=== PATIENT | male | born 1980 | race Caucasian/White ===

== ENCOUNTER 2016-11-20 11:56 | Emergency (ER) | payer MEDICARE ==
[~2016-11-20] VITALS: Ht 185.4 cm; Wt 98.5 kg
[~2016-11-20 11:56] MED LIST: ACET500C5 PO; CETI10CA PO; NPH10OT BOTH EARS
[2016-11-20 11:57] VITALS: Ht 185.4 cm; Wt 98.5 kg
[2016-11-20] MEDS ORDERED: CLIN-73 PO (12:19)
[2016-11-20] MEDS ORDERED: DIVA250T60 PO (12:19)
[2016-11-20] MEDS ORDERED: KEN1O TOP (12:19)
[2016-11-20] MEDS ORDERED: OLAN5TAB5 PO (12:19)
[2016-11-20 13:15] VITALS: BP 158/89; PULSE 75; RESP 18; TEMP 98.4
--- NOTE | 2016-11-20 13:49 | ERD ---
ER Documentation Chief Complaint Date/Time DATE: 11/20/16 TIME: 13:47 Chief Complaint needs refill on psych meds , denies si/hi , ear pain , jaw pain HPI Patient is a 36-year-old male with schizophrenia who presents requesting refills of his medications. He said that he needed Zyprexa, Depakote, clindamycin, triamcinolone cream, and [place]. He has no other complaints. He said that he needs psychiatric referrals as well. Upon review of old medical records this is the patient's sixth visit to the ER since 2014. He does not currently have a primary doctor. ROS All systems reviewed and are negative except as per history of present illness. Medications Home Meds Active Scripts Triamcinolone Acetonide* (Kenalog*) 0.1%-15GM Oint, 1 APPLIC TOP TID, #1 EA Prov:RAIN DARDEN MD 11/20/16 Clindamycin Hcl* (Clindamycin Hcl*) 300 Mg Capsule, 300 MG PO Q8, #90 CAP Prov:RAIN DARDEN MD 11/20/16 Divalproex Sodium* (Depakote*) 250 Mg Tablet.dr, 250 MG PO BID, #60 TAB Prov:RAIN DARDEN MD 11/20/16 Olanzapine* (Zyprexa*) 5 Mg Tablet, 5 MG PO BID, #60 TAB Prov:RAIN DARDEN MD 11/20/16 Cetirizine Hcl* (Zyrtec*) 10 Mg Capsule, 10 MG PO DAILY, #30 TAB.CHEW Prov:DON LEON NP 01/20/16 Neomycin/Polymyxin/Hydrocort* (Cortisporin* Otic) 10 Ml Susp, 4 DROP BOTH EARS QID for 7 Days, EA Prov:DON LEON NP 01/20/16 Acetaminophen* (Tylophen*) 500 Mg Capsule, 1 CAP PO Q6H Y for PAIN AND OR ELEVATED TEMP, #20 CAP Prov:DON LEON NP 01/20/16 Allergies Allergies: Coded Allergies: cephalexin (Verified Allergy, Intermediate, 03/30/15) ibuprofen (Verified Allergy, Intermediate, 03/30/15) PMhx/Soc History of Surgery: Yes (L. EYE ) Anesthesia Reaction: No Hx Neurological Disorder: No Hx Respiratory Disorders: No Hx Cardiac Disorders: No Hx Psychiatric Problems: Yes (schitzophrenia) Hx Miscellaneous Medical Probl: Yes (chronic foot infection) Hx Alcohol Use: Yes (states he no longer drinks) Hx Substance Use: No Hx Tobacco Use: Yes Smoking Status: Former smoker FmHx Family History: diabetes Physical Exam Vitals Vital Signs Date Time Temp Pulse Resp B/P Pulse Ox O2 Delivery O2 Flow Rate FiO2 11/20/16 13:15 98.4 75 18 158/89 98 Room Air 11/20/16 11:57 97.3 82 18 167/118 100 Physical Exam Const: No acute distress Head: Atraumatic Eyes: Normal Conjunctiva ENT: Normal External Ears, Nose and Mouth. Neck: Full range of motion..~ No meningismus. Resp: Clear to auscultation bilaterally Cardio: Regular rate and rhythm, no murmurs Abd: Soft, non tender, non distended. Normal bowel sounds Skin: No petechiae or rashes Back: No midline or flank tenderness Ext: No cyanosis, or edema Neur: Awake and alert Psych: Schizophrenia but no suicidal or homicidal ideation, the patient has organized thought Procedures/MDM Smoking Cessation Therapy: Pt. was lectured for greater than 3 minutes on the health risks of continued smoking and the benefits of cessation. Patient is a 36-year-old male presents for schizophrenia and medication refills. The patient will be given a prescription for Zyprexa, Depakote, clindamycin, and triamcinolone cream. I will not give him a prescription for [place] as this is a controlled substance and he will need to get this by her primary doctor. I have given him referrals for the local clinics as well as for local psychiatric resources. He can return for any worsening symptoms. I do not believe he requires further workup or 5150 hold at this time. Departure Diagnosis: Primary Impression: Schizophrenia Schizophrenia type: unspecified Qualified Code: F20.9 - Schizophrenia, unspecified type Condition: Fair Patient Instructions: Schizophrenia, General Referrals: COMMUNITY CLINICS YOU HAVE RECEIVED A MEDICAL SCREENING EXAM AND THE RESULTS INDICATE THAT YOU DO NOT HAVE A CONDITION THAT REQUIRES URGENT TREATMENT IN THE EMERGENCY DEPARTMENT. FURTHER EVALUATION AND TREATMENT OF YOUR CONDITION CAN WAIT UNTIL YOU ARE SEEN IN YOUR DOCTORS OFFICE WITHIN THE NEXT 1-2 DAYS. IT IS YOUR RESPONSIBILITY TO MAKE AN APPOINTMENT FOR FOLOW-UP CARE. IF YOU HAVE A PRIMARY DOCTOR --you should call your primary doctor and schedule an appointment IF YOU DO NOT HAVE A PRIMARY DOCTOR YOU CAN CALL OUR PHYSICIAN REFERRAL HOTLINE AT IF YOU CAN NOT AFFORD TO SEE A PHYSICIAN YOU CAN CHOSE FROM THE FOLLOWING [facility] [address] [facility] [address] [facility] [facility] [address] [facility] [address] [facility] [address] [facility]. [facility] [address] Additional Instructions: Call your primary care doctor TOMORROW for an appointment during the next 1 WEEK.Tell the field secretary that you were referred from this facility.See the doctor sooner or return here if your condition worsens before your appointment time. RAIN DARDEN MD Nov 20, 2016 13:49
== END 2016-11-20 13:15 | disposition home or self-care (01) ==
LOC: E/R 11:56
DX: F20.9 Schizophrenia, unspecified (principal); Z87.891 Personal history of nicotine dependence
CPT/HCPCS: 99281

== ENCOUNTER 2016-11-27 08:52 | Emergency (ER) | payer MEDICARE ==
[~2016-11-27] VITALS: Wt 91.0 kg
[~2016-11-27 08:52] MED LIST changes: +CLIN-73 PO; +DIVA250T60 PO; +KEN1O TOP; +OLAN5TAB5 PO
[2016-11-27 11:28] LABS: ADD SCAN DIFF NO
[2016-11-27 11:31] LABS: BASOPHILS % 0.4 % (0.0-2.0); EOSINOPHILS # 0.3 10^3/ul (0.0-0.5); EOSINOPHILS % 3.9 % (0.0-7.0); HEMATOCRIT 36.5 % (42.0-52.0); HEMOGLOBIN 12.2 g/dl (14.0-18.0); LYMPHOCYTES # 2.3 10^3/ul (0.8-2.9); LYMPHOCYTES % 30.8 % (15.0-51.0); MEAN CORPUSCULAR HGB CONC 33.4 g/dl (32.0-37.0); MEAN CORPUSCULAR VOLUME 92.9 fl (82.0-101.0); MEAN PLATELET VOLUME 9.1 fl (7.4-10.4); MONOCYTE # 0.9 10^3/ul (0.3-0.9); MONOCYTES % 11.3 % (0.0-11.0); NEUTROPHILS % 53.1 % (39.0-77.0); PLATELET COUNT 237 10^3/UL (140-415); RED BLOOD COUNT 3.93 10^6/ul (4.70-6.10); RED CELL DISTRIBUTION WIDTH 13.2 % (11.5-14.5); WHITE BLOOD COUNT 7.5 10^3/ul (4.8-10.8)
[2016-11-27 11:32] LABS: ADD UMIC NO; UR BILIRUBIN (Dip) NEGATIVE (NEGATIVE); UR BLOOD (Dip) NEGATIVE (NEGATIVE); UR CLARITY CLEAR (CLEAR); UR COLOR LT. YELLOW (YELLOW); UR GLUCOSE (Dip) NEGATIVE (NEGATIVE); UR KETONES (Dip) NEGATIVE (NEGATIVE); UR LEUKOCYTE ESTERASE (Dip) NEGATIVE (NEGATIVE); UR NITRITE (Dip) NEGATIVE (NEGATIVE); UR TOTAL PROTEIN (Dip) NEGATIVE (NEGATIVE); UR UROBILINOGEN (Dip) 0.2 E.U./dL (0.1-1.0)
[2016-11-27 12:07] LABS: BARBITURATES Negative (NEGATIVE); BENZODIAZEPINES Negative (NEGATIVE); CANNABINOIDS Negative (NEGATIVE); COCAINE Negative (NEGATIVE); OPIATES Negative (NEGATIVE)
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
[2016-11-27 12:17] LABS: ALANINE AMINOTRANSFERASE 31 IU/L (13-69); ALBUMIN 4.7 g/dl (3.3-4.9); ALBUMIN/GLOBULIN RATIO 2.47; ALKALINE PHOSPHATASE 65 IU/L (42-121); ANION GAP 12 (8-16); ASPARTATE AMINO TRANSFERASE 17 IU/L (15-46); BILIRUBIN,INDIRECT 0.1 mg/dl (0-1.1); BILIRUBIN,TOTAL 0.1 mg/dl (0.2-1.3); BLOOD UREA NITROGEN 14 mg/dl (7-20); CALCIUM 8.8 mg/dl (8.4-10.2); CARBON DIOXIDE 27 mmol/L (21-31); CHLORIDE 104 mmol/L (97-110); CREATININE 0.94 mg/dl (0.61-1.24); GLUCOSE 102 mg/dl (70-220); POTASSIUM 3.9 mmol/L (3.5-5.1); SODIUM 139 mmol/L (135-144); TOTAL PROTEIN 6.6 g/dl (6.1-8.1)
[2016-11-27 12:19] LABS: ACETAMINOPHEN < 10.0 ug/ml (10.0-30.0); ETHANOL < 10.0 mg/dl; SALICYLATE < 1.0 mg/dl (5.0-30.0)
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
--- NOTE | 2016-11-27 23:46 | EN ---
Date/Time of Note Date/Time of Note DATE: 11/27/16 TIME: 23:45 ER Progress Note When evaluated by PMR T this patient states that he was not suicidal. The patient said he was unable to drugs previously. I did have this patient reevaluated by tele-psych physician who states that the 50 150s hold can be removed. The patient is denying any suicidal or homicidal ideation will be discharged home with a prescription for Zyprexa 10 mg, Depakote 500 mg daily BROOKLYNN PAINTING DO Nov 27, 2016 23:46
[2016-11-27] MEDS ORDERED: OLAN10TA7 PO (23:47)
[2016-11-27] MEDS ORDERED: DIVA500T7 PO (23:47)
[2016-11-27 23:50] VITALS: BP 137/79; PULSE 86; RESP 20; TEMP 98.5
== END 2016-11-27 23:54 | disposition home or self-care (01) ==
LOC: E/R 08:52
DX: F22 Delusional disorders (principal); F23 Brief psychotic disorder; F17.210 Nicotine dependence, cigarettes, uncomplicated
CPT/HCPCS: 36415; 80053; 80306; 80307; 81003; 85025; 99284

== ENCOUNTER 2016-11-27 14:38 | Emergency (ER) | payer MEDICARE ==
[~2016-11-27] VITALS: Wt 96.5 kg
[2016-11-27 14:41] VITALS: Wt 96.5 kg
[2016-11-27] MEDS ORDERED: OLAN10TA7 PO (23:47)
[2016-11-27] MEDS ORDERED: DIVA500T7 PO (23:47)
== END 2016-11-27 15:31 | disposition left against medical advice (07) ==
LOC: E/R 14:38
DX: Z53.21 Procedure and treatment not carried out due to patient leaving prior to being seen by health care provider (principal)

== ENCOUNTER 2017-01-04 00:09 | Emergency (ER) | payer MEDICARE ==
[~2017-01-04] VITALS: Ht 188 cm; Wt 100.0 kg
[~2017-01-04 00:09] MED LIST changes: -ACET500C5 PO; -CETI10CA PO; +DIVA500T7 PO; -NPH10OT BOTH EARS; +OLAN10TA7 PO
[2017-01-04] MEDS ORDERED: ACETAMINOPHEN 500 MG TAB PO STA (01:52)
--- NOTE | 2017-01-04 01:52 | ERD ---
ER Documentation Chief Complaint Date/Time DATE: 01/04/17 TIME: 01:49 Chief Complaint HPI This 36-year-old male patient reports ACE since this morning, pt is sleeping in exame room , unable to stay awake, denies illigal drug use. homeless. pt unable to describe headache. Patient is a poor historian, unable to stay wakeful doing interview process. Patient repeatedly denies drug use. ROS All systems reviewed and are negative except as per history of present illness. Medications Home Meds Active Scripts Divalproex Sodium* (Depakote*) 500 Mg Tablet.dr, 500 MG PO BID, #20 TAB Prov:BROOKLYNN PAINTING DO 11/27/16 Olanzapine* (Zyprexa*) 10 Mg Tablet, 10 MG PO DAILY, #15 TAB Prov:BROOKLYNN PAINTING DO 11/27/16 Triamcinolone Acetonide* (Kenalog*) 0.1%-15GM Oint, 1 APPLIC TOP TID, #1 EA Prov:RAIN DARDEN MD 11/20/16 Clindamycin Hcl* (Clindamycin Hcl*) 300 Mg Capsule, 300 MG PO Q8, #90 CAP Prov:RAIN DARDEN MD 11/20/16 Divalproex Sodium* (Depakote*) 250 Mg Tablet.dr, 250 MG PO BID, #60 TAB Prov:RAIN DARDEN MD 11/20/16 Olanzapine* (Zyprexa*) 5 Mg Tablet, 5 MG PO BID, #60 TAB Prov:RAIN DARDEN MD 11/20/16 Allergies Allergies: Coded Allergies: cephalexin (Verified Allergy, Intermediate, 03/30/15) ibuprofen (Verified Allergy, Intermediate, 03/30/15) PMhx/Soc History of Surgery: Yes (L. EYE ) Anesthesia Reaction: No Hx Neurological Disorder: No Hx Respiratory Disorders: No Hx Cardiac Disorders: No Hx Psychiatric Problems: Yes (Schizophrenia) Hx Miscellaneous Medical Probl: Yes (chronic foot infection) Hx Alcohol Use: No (states he no longer drinks) Hx Substance Use: No Hx Tobacco Use: Yes Physical Exam Vitals Vital Signs Date Time Temp Pulse Resp B/P Pulse Ox O2 Delivery O2 Flow Rate FiO2 01/04/17 02:26 98.0 79 20 132/87 99 BP 152/87, HR 79, RR 20, T 97.5 02 sat 99% Physical Exam Const: No acute distress Head: Atraumatic Eyes: Normal Conjunctiva PERRLA, EOMI ENT: Normal External Ears, Nose and Mouth. Mucous membranes moist Neck: Full range of motion.. Resp: Clear to auscultation bilaterally Cardio: Regular rate and rhythm, no murmurs Abd: Soft, non tender, non distended. Normal bowel sounds Skin: No petechiae or rashes Back: No midline or flank tenderness Ext: No cyanosis, or edema Neur: Speech is clear, pupils equal round and reactive to light and accommodation, sensation to light touch is intact bilaterally Commercial Title Examiner strength is 5/5 Psych: Normal Mood and Affect patient appears sedated, Results 24 hrs Current Medications Medications (Trade) Dose Ordered Sig/Saira Route PRN Reason Start Time Stop Time Status Last Admin Dose Admin Acetaminophen (Tylenol Tab) 1,000 mg ONCE STAT PO 01/04/17 01:52 01/04/17 01:54 DC Procedures/MDM This 36-year-old male patient presents to emergency department for complaint of headache since this morning. Patient is laying in exam bed covered with a blanket, difficult to arouse. Patient speech is clear, wakeful appears startled , patient falls asleep as soon as he stops talking, it is my impression that he is sedated regardless of his continued denial of illegal drug use. Patient reports he is homeless, is asking for food, will not describe headache, is a poor historian. I have no concern for subdural hematoma, or subarachnoid bleed. Patient is treated with 1000 mg of Tylenol, discharged to continue Tylenol, return to emergency department for worsening of symptoms, change in vision, or change in behavior, nausea, or vomiting. Departure Diagnosis: Primary Impression: Headache Headache type: unspecified Headache chronicity pattern: unspecified pattern Intractability: not intractable Qualified Code: R51 - Nonintractable headache, unspecified chronicity pattern, unspecified headache type Condition: Stable Patient Instructions: Self-Care for Headaches Additional Instructions: Thank you for for coming to [facility] for your care today. Please ask your nurse or provider if you have questions about your care today and do not leave until all your questions have been answered. Please use any medications given as directed and follow-up with your doctor (or the doctor you were referred to) in the next 2-3 days. If you do not have a primary care doctor you may follow up at the [facility] [place] (listed below). You may also use motrin and tylenol as needed for fever and/or pain unless instructed otherwise by your provider or nurse. Indications for more urgent follow-up have been discussed, but you may return to the Emergency Department at ANY time for any worrisome or worsening symptoms. If you have abdominal pain, please know that no test or exam you received is perfect and you should follow up within 8 hours for continued pain. If you had any imaging studies today, such as an X-Ray or CT Scan, these studies will be reviewed later by a radiologist. You will be called if there are important findings that were not identified today, so make sure the contact information you provided at registration is correct. If you received any narcotic pain control medicine today, such as Vicodin, Morphine or Dilaudid, your coordination and judgment may be affected for a number of hours. Please do not drive or operate heavy machinery, and you may want someone to assist you at home. If you were given a prescription for narcotic medication, be aware that it is very addictive- use sparingly and only if necessary. MILAGROS MCNEAL Jan 04, 2017 01:52
[2017-01-04 02:26] VITALS: Ht 188 cm; Wt 100.0 kg
[2017-01-04] MEDS ORDERED: ACETAMINOPHEN 325 MG TAB PO STA (03:05)
[2017-01-04] MEDS ORDERED: SOD CHLORIDE 0.9% 1,000 ML IV STA (03:05)
== END 2017-01-04 03:25 | disposition home or self-care (01) ==
LOC: FTE 00:09
DX: R51 Headache (principal); Z87.891 Personal history of nicotine dependence
CPT/HCPCS: 99282; J7030

== ENCOUNTER 2017-07-02 11:01 | Emergency (ER) | END 2017-07-02 11:20 | disposition home or self-care (01) ==

== ENCOUNTER 2017-07-14 12:31 | Emergency (ER) | END 2017-07-14 12:40 | disposition left against medical advice (07) ==

== ENCOUNTER 2017-09-24 14:02 | Emergency (ER) | END 2017-09-24 14:15 | disposition home or self-care (01) ==